=== PATIENT | male | born 1965 | race Caucasian/White ===

== ENCOUNTER 2016-09-23 08:56 | Day surgery (SDC) | payer OTHER ==
[~2016-09-23] VITALS: Ht 167.6 cm; Wt 52.2 kg
[~2016-09-23 08:56] MED LIST: ALBU18HF INH; FERR325T6 PO; FURO-128 PO; Lactated Ringer's 1,000 ML IV ONE; METO25TA6 PO; MULT-1018 PO; SPIR100T PO
[2016-09-23] MEDS ORDERED: fentaNYL-PF 50 mCg/mL 2 mL Inj ONE (08:57)
[2016-09-23] MEDS ORDERED: Propofol 10,000 mCg/mL 20 mL Inj ONE (08:57)
[2016-09-23 09:16] VITALS: BP 124/88; PULSE 90; RESP 16; O2SAT 95
--- NOTE | 2016-09-23 09:41 | PCM.HPANE ---
Patient Data Surgeon Admitting Provider: Attending Provider:Vinny Lou MD Primary Care Physician:Tressa Mcallister DO Other Provider:Rehan Arevalo Anesthesia Reason for Visit Alcoholic Cirrhosis Of Liver Ht/WT & BMI Body Mass Index Allergies Coded Allergies: No Known Drug Allergies (Verified Allergy, Unknown, 09/23/16) Medications Reported Medications Furosemide (Lasix)40 Mg [id number] Mg PO DAILY 30 Days Ref 0 09/22/16 Spironolactone (Aldactone)100 Mg [id number] Mg PO DAILY Ref 0 09/22/16 Albuterol Sulfate (Ventolin HFA Inhaler)200 Puff/18 Gm Inhaler1 Puff INH Q4 PRN For Wheezing #1 INHALER Ref 0 09/22/16 Multivitamin (Multi Vitamin Daily)1 Each Tablet1 Each PO DAILY 30 Days Ref 0 09/22/16 Metoprolol Tartrate 25 Mg Ldbwqn95 Mg PO BID 30 Days Ref 0 09/22/16 Ferrous Sulfate 325 Mg Tablet.dr325 Mg PO DAILY 30 Days Ref 0 09/22/16 Stop/Bang Risk Assessment Category Category 1A: Patient has history of documented sleep apnea, and HAS NOT received any narcotic, sedative or anesthesia administration during this stay. Category 1B: Patient has history of documented sleep apnea, and HAS received any narcotic , sedative or anesthesia administration during this stay Category 2: Patient has SUSPECTED Obstructive Sleep Apnea, and HAS received any narcotic , sedative or anesthesia administration during this stay. Category 3: Patient has SUSPECTED Obstructive Sleep Apnea and HAS NOT received narcotic, sedative or anesthesia administration during this stay. Category 4: Outpatient in Procedural Areas with known sleep apnea or who screen positive for High Risk via the STOP/BANG questionnaire. Exam Exam General Appearance: Alert, Oriented X3, Cooperative, No Acute Distress HEENT/AIRWAY: MP 2 Lungs: Clear to Auscultation, Normal Air Movement Heart: Exam Unremarkable, Regular Rate/Rhythm, No Murmurs/Rubs/Gallops Plan Impression Patient chart reviewed, patient interviewed and anesthestic plan with risks, benefits, and alternatives discussed, and informed consent obtained. ASA Physical Status: ASA3 Severe Disease (etoh abuse) Anesthetic Plan: MAC Bene/Risks/Altern/Consents: Yes HP Complete Prior to Induction: Yes Randall Doll MD Sep 23, 2016 09:02
[2016-09-23 09:58] VITALS: BP 111/74; PULSE 91; RESP 16; O2SAT 96
--- NOTE | 2016-09-23 09:58 | PCM.ANEP2 ---
Post Anesthesia Evaluation ASA/CMS Post Anesthesia VS in Patient's Normal Range?: Yes Resp Stable; Airway Patent?: Yes CV Function & Hydration Stable: Yes Mental Status Recovered?: Yes Pain control Satisfactory?: Yes N/V Control Satisfactory?: Yes Randall Doll MD Sep 23, 2016 09:58
[2016-09-23 10:06] VITALS: BP 121/74; PULSE 93; RESP 16; O2SAT 97
--- NOTE | 2016-09-23 23:08 | ENDO ---
[address] [address] ENDOSCOPY PROCEDURE PATIENT: EUGENIE DAMON : 1965 MR#: [id number] ADMIT: 09/23/2016 JOB ID: [id number] DATE OF PROCEDURE: 09/23/2016 PROCEDURE: Esophagogastroduodenoscopy with biopsy. PREOPERATIVE DIAGNOSIS(ES): Alcoholic cirrhosis. POSTOPERATIVE DIAGNOSIS(ES): 1. Moderate portal hypertensive gastropathy. 2. Mild nonerosive gastritis. 3. No esophageal or gastric varices were seen. ANESTHESIA: Monitored anesthesia care. COMPLICATIONS: None. BLOOD LOSS: Minimal. DESCRIPTION OF PROCEDURE: After risks and benefits explained to patient, informed consent was obtained. After anesthesia administered, an upper endoscope was then inserted into the mouth and intubating into the esophagus, stomach, second portion of duodenum. Mucosa carefully examined. After the procedure, the scope withdrawn and the procedure terminated. FINDINGS: Upon inspection of esophagus, the esophagus was normal without masses, ulcers, or lesions. No esophageal varices were seen. Z-line located 40 cm from incisors. Upon entering the stomach there was classic scalloping seen with moderate portal hypertensive gastropathy. There was mild nonerosive gastritis on retroflexion. No evidence of hiatal hernia. No gastric varices were seen. The duodenal bulb, first and second portion were normal. Biopsies taken of antrum, , stomach. IMPRESSIONS: 1. Moderate portal hypertensive gastropathy. 2. Mild nonerosive gastritis. 3. No gastric or esophageal varices were seen. RECOMMENDATION: Await pathology results. Continue Lasix and Aldactone as prescribed as an outpatient. Follow up in GI clinic as needed.
--- NOTE | 2016-09-24 11:11 | PATH ---
SURGICAL PATHOLOGY Attending Physician:Vinny Lou MD CASE STATUS: Signed Out PATIENT NAME: EUGENIE DAMON PID: [id number] : 1965 DATE COLLECTED:09/23/2016 17:53 SPECIMEN: 1: Stomach, Antrum, Biopsy 2: Gastric, Biopsy CLINICAL HISTORY: 1). ANTRUM BIOPSY 2). GASTRIC BIOPSY FINAL DIAGNOSIS: 1. Antrum Biopsy: Diffuse moderate chronic gastritis involving antral mucosa. Immunohistochemistry for Helicobacter pending to be reported by addendum. Negative for intestinal metaplasia. Negative for dysplasia and malignancy. 2. Gastric Biopsy: Diffuse mild to moderate chronic gastritis involving fundic mucosa. Immunohistochemistry for Helicobacter pending to be reported by addendum. Negative for intestinal metaplasia. Negative for dysplasia and malignancy. ICD10 K29.70 GROSS DESCRIPTION: The specimen is received in two formalin filled containers labeled with the patient's name. 1). The specimen is sublabeled "antrum" and consists of 2 portions of tissue which aggregate to 0.4 x 0.3 x 0.2 CM. The specimen is entirely submitted in cassette 1A. 2). The specimen is sublabeled "gastric" and consists of 2 portions of tissue which aggregate to 0.3 x 0.3 x 0.2 CM. The specimen is entirely submitted in cassette 2A 09/23/2016 [facility] ICD-9 CODES: CPT CODES: 1: 60727, 31635 2: 81782, 17982 PROCEDURE/ADDENDA: Addendum SPI Addendum Diagnosis IMMUNOHISTOCHEMISTRY RESULTS: 1. Antrum Biopsy: Negative for Helicobacter pylori by immunohistochemistry. 2. Gastric Biopsy: Negative for Helicobacter pylori by immunohistochemistry. Addendum Comment {Not Entered} Electronically Signed Out José Pablo MD Electronically Signed Out José Pablo MD [facility] [place] [address] Technical component performed at [facility], [facility] [address], [place], [address]
== END 2016-09-23 23:59 | disposition home or self-care (01) ==
LOC: END 08:56
PROVIDERS: ATTEND Internal Medicine Gastroenterology
DX: K70.31 Alcoholic cirrhosis of liver with ascites (principal); K76.6 Portal hypertension; K31.89 Other diseases of stomach and duodenum; K29.50 Unspecified chronic gastritis without bleeding; I10 Essential (primary) hypertension; J44.9 Chronic obstructive pulmonary disease, unspecified; R14.0 Abdominal distension (gaseous); F10.20 Alcohol dependence, uncomplicated; Z86.010 Personal history of colon polyps